=== PATIENT | male | born 1985 | race Caucasian/White ===

== ENCOUNTER 2017-09-08 22:04 | Inpatient (IN) ==
[2017-09-08 22:33] LABS: Bilirubin,Urine Small (Negative); Blood,Urine Negative (Negative); Clarity,Urine Cloudy (Clear); Color,Urine Dark Yellow (Yellow); Glucose,Urine (UA) Normal (Normal); Ketones,Urine Negative (Negative); Leukocyte Esterase,Urine Negative (Negative); Nitrite,Urine Negative (Negative); Protein,Urine 30 mg/dL (Neg-Trace); Specific Gravity,Urine 1.028 (1.010-1.025); Urobilinogen,Urine Normal (Normal)
[2017-09-08 22:36] LABS: Hyaline Casts,Urine None Seen per lpf (None-Few); Squamous Epithelial Cell,Urine Moderate per lpf (None-Few); WBC,Urine 0-3 per hpf (0-3)
[2017-09-08 22:39] LABS: Amphetamine Screen,Urine Positive ng/mL (Cutoff=1000); Barbiturate Screen,Urine Negative ng/mL (Cutoff=200); Benzodiazepines Screen,Urine Negative ng/mL (Cutoff=200); Cannabinoid Screen,Urine Negative ng/mL (Cutoff = 50); Cocaine Screen,Urine Negative ng/mL (Cutoff= 300); Opiate Screen,Urine Negative ng/mL (Cutoff=300); Phencyclidine Screen,Urine Negative ng/mL (Cutoff=25)
[2017-09-08 22:44] LABS: Bacteria,Urine Few per hpf (None-Few); RBC,Urine 0-3 per hpf (0-3)
--- NOTE | 2017-09-08 23:30 | Emergency Department Note ---
Disposition Clinical Impression: Suicidal ideation Disposition: Admitted As Inpatient Condition: Fair Time of Disposition: 01:14 Psych HPI - General Chief Complaint: ED Psychiatric Symptoms Stated Complaint: SI/HI Time Seen by Provider: 09/08/17 23:00 Source: patient Mode of arrival: ambulatory Limitations: no limitations Nursing Notes Reviewed: Yes Vital Signs Reviewed: Yes - History of Present Illness HPI Narrative: 32-year-old male history of schizophrenia noncompliant on Respinol presents with suicidal ideations. Patient denies specific plan but he has had suicidal thoughts for the last day, lately because of increased stress at home and in his life. Patient denies headache chest pain abdominal pain hematochezia melena , fever or chills. The patient states that he has no hallucinations or compulsions. Pt complaint: suicidal ideation Duration: constant History of similar episodes: Yes Improves with: none Worsens with: none Associated Psychiatric Symptoms: suicidal ideation - Related Data Previous Rx's Medication Instructions Recorded Ciprofloxacin [Cipro] 500 mg PO BID #14 tablet 02/16/16 HYDROcodone/Acet 5/325 mg [[place] 1 tab PO Q4H PRN #10 tab 02/16/16 5-325 mg] Ondansetron ODT [Zofran ODT] 4 mg SL Q4HR PRN #8 tab.rapdis 02/16/16 metroNIDAZOLE [Flagyl] 500 mg PO TID #21 tablet 02/16/16 Ibuprofen [Motrin] 600 mg PO Q8HR PRN #20 tab 07/15/17 Allergies Allergy/AdvReac Type Severity Reaction Status Date / Time No Known Allergies Allergy Verified 07/15/17 18:19 All systems ED: reviewed and negative except as stated. Review of Systems: As Per HPI Constitutional: Denies: fever Eyes: Denies: eye pain ENT ED: Denies: ear pain Cardiovascular: Denies: chest pain Respiratory: Denies: cough Gastrointestinal: Denies: abdominal pain Genitourinary: Denies: urgency Musculoskeletal: Denies: back pain Neurological: Denies: headache, weakness Psychiatric: Reports: as per HPI, depression, suicidal thoughts. Denies: anxiety, homicidal thoughts, auditory hallucinations, visual hallucinations Endocrine: Denies: fatigue Hematological/Lymphatic: Denies: easy bleeding Past Medical History - Past Medical History Attestation: Yes The following information was validated with the patient. Source: patient Medical history: Reports: no medical history Surgical history: Reports: orthopedic, other (ORIF left femur years ago) Psychiatric history: Reports: no psych history - Social History Smoking Status: Current some day smoker Smokeless Tobacco Status: Yes (occassional) Alcohol use: Reports: none Drug use: Reports: none Physical Exam Constitutional: Disheveled young male in no acute distress. Eyes: PERRLA, sclera anicteric ENT & Mouth: MMM Neck: normal inspection, neck is supple Resp: CTA bilaterally, no resp distress CV: RRR, no m/g/r dppt intact distally GI: normal inspection, soft, no guarding or rigidity Neuro: A&O3, CNII-XII grossly intact, VERDUZCO Psych: +SI Skin: on limited exam, skin intact except for callouses on feet bilaterally - General Limitations: no limitations General appearance: alert, in no apparent distress Course Course Narrative: Suicidal ideation history of schizophrenia patient will be evaluated by psychiatry after medical clearance. - Reevaluation(s) Reevaluation #1: Patient is medically cleared and admitted to the psychiatry service under the care of Dr. Thakkar after evaluation by one a nursing suicidal ideation pink slip given patient to be admitted to psychiatry in stable condition Time: 01:14 Vital Signs Temperature 97.8 F 09/08/17 22:05 Pulse Rate 95 09/08/17 22:05 Respiratory Rate 16 09/08/17 22:05 Blood Pressure 126/76 09/08/17 22:05 O2 Sat by Pulse Oximetry 98 09/08/17 22:05 Temperature 97.8 F 09/08/17 22:05 Pulse Rate 95 09/08/17 22:05 Respiratory Rate 16 09/08/17 22:05 Blood Pressure 126/76 09/08/17 22:05 O2 Sat by Pulse Oximetry 98 09/08/17 22:05 Oxygen Delivery Oxygen Delivery Room Air Psych - Lab Data Result diagrams: 09/08/17 22:39 09/08/17 22:39 Lab Results 09/08/17 09/08/17 09/08/17 Range/Units 22:10 22:10 22:39 WBC 8.6 (4.3-11.1) K/mcL RBC 4.93 (4.19-5.50) M/mcL Hgb 14.1 (12.9-16.9) g/dL Hct 43.4 (37.5-50.1) % MCV 88.0 (83.0-100.0) fL MCH 28.6 (28.0-33.3) pg MCHC 32.5 (31.6-35.5) g/dL RDW 13.7 (11.5-14.5) % Plt Count 335 (140-400) K/mcL MPV 9.3 L (9.4-12.4) fL Immature Gran % 0.2 (0-4) % Seg Neutrophils % 58.1 % Lymphocytes % 28.8 % Monocytes % 9.3 % Eosinophils % 2.9 % Basophils % 0.7 % Neutrophils # 5.0 (1.6-8.9) K/mcL Lymphocytes # 2.5 (0.6-4.6) K/mcL Monocytes # 0.8 (0.0-1.3) K/mcL Eosinophils # 0.3 (0.0-0.6) K/mcL Basophils # 0.1 (0.0-0.2) K/mcL Sodium (136-145) mEq/L Potassium (3.5-5.1) mEq/L Chloride (98-107) mEq/L Carbon Dioxide (23-29) mEq/L BUN (6-20) mg/dL Creatinine (0.70-1.30) mg/dL Est GFR ( Amer) (> 60) Est GFR (Non-Af Amer) (> 60) BUN/Creatinine Ratio (6-26) Glucose (70-105) mg/dL Calculated Osmolality (280-300) Calcium (8.6-10.3) mg/dL Ur Specimen Adequacy See below A Urine Color Dark Yellow (Yellow) Urine Clarity Cloudy A (Clear) Urine pH 7.0 (5.0-8.0) pH Units Ur Specific [place] 1.028 H (1.010-1.025) Urine Protein 30 H (Neg-Trace) mg/dL Urine Glucose (UA) Normal (Normal) mg/dL Urine Ketones Negative (Negative) mg/dL Urine Blood Negative (Negative) Urine Nitrite Negative (Negative) Urine Bilirubin Small H (Negative) Urine Urobilinogen Normal (Normal) mg/dL Ur Leukocyte Esterase Negative (Negative) Urine Microscopic RBC 0-3 (0-3) per hpf Urine Microscopic WBC 0-3 (0-3) per hpf Ur Squamous Epith Cells Moderate H (None-Few) per lpf Urine Bacteria Few (None-Few) per hpf Hyaline Casts None Seen (None-Few) per lpf Salicylates (15.0-30.0) mg/dL Urine Opiates Screen Negative (Uglcbp=727) ng/mL Acetaminophen (10-30) mcg/mL Ur Barbiturates Screen Negative (Qxoqfq=899) ng/mL Ur Phencyclidine Scrn Negative (Cutoff=25) ng/mL Ur Amphetamines Screen Positive H (Ucnbbe=2907) ng/mL U Benzodiazepines Scrn Negative (Ofhpwa=896) ng/mL Urine Cocaine Screen Negative (Cutoff= 300) ng/mL U Marijuana (THC) Screen Negative (Cutoff = 50) ng/mL Ethyl Alcohol (0-10) mg/dL 09/08/17 Range/Units 22:39 WBC (4.3-11.1) K/mcL RBC (4.19-5.50) M/mcL Hgb (12.9-16.9) g/dL Hct (37.5-50.1) % MCV (83.0-100.0) fL MCH (28.0-33.3) pg MCHC (31.6-35.5) g/dL RDW (11.5-14.5) % Plt Count (140-400) K/mcL MPV (9.4-12.4) fL Immature Gran % (0-4) % Seg Neutrophils % % Lymphocytes % % Monocytes % % Eosinophils % % Basophils % % Neutrophils # (1.6-8.9) K/mcL Lymphocytes # (0.6-4.6) K/mcL Monocytes # (0.0-1.3) K/mcL Eosinophils # (0.0-0.6) K/mcL Basophils # (0.0-0.2) K/mcL Sodium 138 (136-145) mEq/L Potassium 4.0 (3.5-5.1) mEq/L Chloride 103 (98-107) mEq/L Carbon Dioxide 28 (23-29) mEq/L BUN 13 (6-20) mg/dL Creatinine 0.75 (0.70-1.30) mg/dL Est GFR ( Amer) > 60 (> 60) Est GFR (Non-Af Amer) > 60 (> 60) BUN/Creatinine Ratio 17 (6-26) Glucose 103 (70-105) mg/dL Calculated Osmolality 286 (280-300) Calcium 9.0 (8.6-10.3) mg/dL Ur Specimen Adequacy Urine Color (Yellow) Urine Clarity (Clear) Urine pH (5.0-8.0) pH Units Ur Specific [place] (1.010-1.025) Urine Protein (Neg-Trace) mg/dL Urine Glucose (UA) (Normal) mg/dL Urine Ketones (Negative) mg/dL Urine Blood (Negative) Urine Nitrite (Negative) Urine Bilirubin (Negative) Urine Urobilinogen (Normal) mg/dL Ur Leukocyte Esterase (Negative) Urine Microscopic RBC (0-3) per hpf Urine Microscopic WBC (0-3) per hpf Ur Squamous Epith Cells (None-Few) per lpf Urine Bacteria (None-Few) per hpf Hyaline Casts (None-Few) per lpf Salicylates < 5.0 L (15.0-30.0) mg/dL Urine Opiates Screen (Wjwkrm=033) ng/mL Acetaminophen < 1.0 L (10-30) mcg/mL Ur Barbiturates Screen (Afhhik=614) ng/mL Ur Phencyclidine Scrn (Cutoff=25) ng/mL Ur Amphetamines Screen (Eeztvt=8015) ng/mL U Benzodiazepines Scrn (Jqnuzi=333) ng/mL Urine Cocaine Screen (Cutoff= 300) ng/mL U Marijuana (THC) Screen (Cutoff = 50) ng/mL Ethyl Alcohol < 10 (0-10) mg/dL Psychiatric Medical Clearance - Medical Clearance Checklist Does the patient have a NEW psychiatric condition?: Yes Any abnormalities indicating possible medical illness?: No Any history of medical issues?: No Medical History: Suicidal ideation (Acute) Colitis (Inactive) Contusion of left hip (Inactive) Femoral shaft fracture (Inactive) Left leg pain (Inactive) No Social History Section defined Any abnormal vital signs prior to transfer?: No Current Vitals: Last Vital Signs Temp 97.8 F 09/08/17 22:05 Pulse 95 09/08/17 22:05 Resp 16 09/08/17 22:05 BP 126/76 09/08/17 22:05 Pulse Ox 98 09/08/17 22:05 Is the patient intoxicated or cognitively impaired?: No Psychiatric Lab Panel: Drug Levels and Toxicity 09/08/17 09/08/17 22:10 22:39 Urine Opiates Screen Negative Acetaminophen < 1.0 L Ur Barbiturates Screen Negative Ur Phencyclidine Scrn Negative Ur Amphetamines Screen Positive H U Benzodiazepines Scrn Negative Urine Cocaine Screen Negative U Marijuana (THC) Screen Negative Ethyl Alcohol < 10 Any abnormalities on the physical exam?: No Any abnormal labs?: No Abnormal Labs: Abnormal lab results MPV 9.3 fL (9.4-12.4) L 09/08/17 22:39 Ur Specimen Adequacy See below A 09/08/17 22:10 Urine Clarity Cloudy (Clear) A 09/08/17 22:10 Ur Specific [place] 1.028 (1.010-1.025) H 09/08/17 22:10 Urine Protein 30 mg/dL (Neg-Trace) H 09/08/17 22:10 Urine Bilirubin Small (Negative) H 09/08/17 22:10 Ur Squamous Epith Cells Moderate per lpf (None-Few) H 09/08/17 22:10 Salicylates < 5.0 mg/dL (15.0-30.0) L 09/08/17 22:39 Acetaminophen < 1.0 mcg/mL (10-30) L 09/08/17 22:39 Ur Amphetamines Screen Positive ng/mL (Wvjqno=6943) H 09/08/17 22:10 Does the patient require durable medical equiptment?: No Is the patient ambulatory?: Yes Is the patient a fall risk?: No Has the patient been medically cleared?: Yes Any acute medical condition require Tx prior to transfer?: No Statement of Medical Clearance: I have evaluated the patient, reviewed diagnostic information, and certify that the patient's medical condition is sufficiently stable that transfer to the psychiatric unit does not pose a significant risk of deterioration. Attestation Statement - Attestation Attestation: I, Preston Castaneda MD, personally evaluated this patient and discussed their management with the resident physician. I reviewed the resident's note and agree with the documented findings, medical decision making, and plan of care. 32-year-old male who is homeless and presents to the emergency department complaining of suicidal ideation. He states he has been having suicidal thoughts for the past few weeks. He does not have a specific plan. He has a history of some suicidal thoughts in the past but has never attempted to harm himself. He denies homicidal ideation. He complains of pain in his feet from wearing wet shoes and walking a lot. On examination patient is a well-developed well-nourished male in no acute distress. He is alert and oriented 3. There is no cyanosis or diaphoresis. Breath sounds are clear and equal bilaterally. Heart regular rate and rhythm. Abdomen soft and nontender with normal bowel sounds. No gross focal neurological deficits. Patient has multiple calluses on his feet bilaterally with some erythema. No open wounds or blisters. No evidence of frostbite. Labs reviewed. Patient medically cleared for psychiatric evaluation. He was seen and evaluated in the emergency department by the [address] psychiatry service and is being admitted to the 1A psychiatric unit.
[2017-09-08 23:38] LABS: Basophils # 0.1 K/mcL (0.0-0.2); Basophils % 0.7 %; Eosinophils # 0.3 K/mcL (0.0-0.6); Eosinophils % 2.9 %; Hematocrit 43.4 % (37.5-50.1); Hemoglobin 14.1 g/dL (12.9-16.9); Immature Granulocytes % 0.2 % (0-4); Lymphocytes # 2.5 K/mcL (0.6-4.6); Lymphocytes % 28.8 %; Mean Corpuscular HGB Conc 32.5 g/dL (31.6-35.5); Mean Corpuscular Hemoglobin 28.6 pg (28.0-33.3); Mean Platelet Volume 9.3 fL (9.4-12.4); Monocytes # 0.8 K/mcL (0.0-1.3); Monocytes % 9.3 %; Platelet Count 335 K/mcL (140-400); Red Blood Count 4.93 M/mcL (4.19-5.50); Red Cell Distribution Width 13.7 % (11.5-14.5); Segmented Neutrophils % 58.1 %
[2017-09-09 00:01] LABS: BUN/Creatinine Ratio 17 (6-26); Blood Urea Nitrogen 13 mg/dL (6-20); Carbon Dioxide 28 mEq/L (23-29); Chloride 103 mEq/L (98-107); Glucose 103 mg/dL (70-105); Osmolality,Calculated 286 (280-300); Sodium 138 mEq/L (136-145); eGFR For African Americans > 60 (> 60); eGFR For Non-African Americans > 60 (> 60)
[2017-09-09 00:08] LABS: Acetaminophen < 1.0 mcg/mL (10-30); Ethanol < 10 mg/dL (0-10); Salicylate < 5.0 mg/dL (15.0-30.0)
[2017-09-09] MEDS ORDERED: MOM Conc 10 ML UD.LIQ PO PRN (01:07)
[2017-09-09] MEDS ORDERED: Haloperidol Lactate 5 MG/ML VIAL IM PRN (01:07)
[2017-09-09] MEDS ORDERED: *HR* LORazepam 1 MG TABLET PO PRN (01:07)
[2017-09-09] MEDS ORDERED: *HR* LORazepam 2 MG/ML VIAL IM PRN (01:07)
[2017-09-09] MEDS ORDERED: Mag Hydrox/Al Hydrox/Simeth 30 ML UDC PO PRN (01:07)
[2017-09-09] MEDS: traZODone 50 MG TABLET PO PRN (01:56)
[2017-09-09] MEDS: Acetaminophen 325 MG TABLET PO PRN (01:56)
--- NOTE | 2017-09-09 10:38 | Psychiatry History & Physical ---
Date of Encounter: 09/09/17 Time of Encounter: 10:10 History of Present Illness Patient Stated Chief Complaint: i am having suicide thoughts. Medicare Admission Attestation: For traditional Medicare patients the provided hospital inpatient services are reasonable and necessary and in the case of services not specified as inpatient -only under 42 CFR 419.22 (n), that they are appropriately provided as inpatient services in accordance 42 CFR 412.3. For Critical Access Hospital the patient may reasonably be expected to be discharged or transferred to a hospital within 96 hours after admission to the Critical Access Hospital. Admitted From: Emergency Dept Plans for Post Hospital Care: Transfer Other History of Present Illness: Mr. Wright is a 32 year old male evaluated today , he has h/o Schizophrenia and off medicine risperdal for few years. 32-year-old male who is homeless and presents to the emergency department complaining of suicidal ideation. He states he has been having suicidal thoughts for the past few weeks. He does not have a specific plan. He has a history of some suicidal thoughts in the past but has never attempted to harm himself. At present is depress and feels fatigued and tired and lack of motivation , denies any plan to hurt self, he is having auditory hallucinations here and there, not commanding, admits to paranoia , denies any homicidal ideation. His tox screen positive for methamphetamine , sammy other drugs, he states uses occasionally. medically he is stable . at present depress, having suicidal ideation and psychosis. Past Med Surg Social Fam HX - Past Medical History Medical history: no medical history - Past Psychiatric History Psychiatric history: Reports: depression, schizophrenia, previous psychiatric hospitalization Family psychiatric history: Yes Family History of Suicide: Unknown - Past Surgical History Surgical History: orthopedic, other (ORIF left femur years ago) - Social History Smoking Status: Current some day smoker Smokeless Tobacco Status: Yes (occassional) Alcohol use: none Drug use: none - Family History Mother History Unknown: Yes Adopted: No Hx Family Cancer: Yes (lung) Medications & Allergies 3 Allergy/AdvReac Type Severity Reaction Status Date / Time No Known Allergies Allergy Verified 07/15/17 18:19 Review of Systems Psychiatric: Reports: depression, anxiety, change in appetite, auditory hallucinations, hopelessness Mental Status Exam Patient orientation: Yes Person, Yes Time, Yes Place Level of alertness: Alert Patient appearance: Disheveled Behavior: cooperative, anxious Psychomotor activity: Normal Eye contact: Minimal Contact Mood description: Depressed, Anxious Affect description: congruent with mood Speech pattern: Slowed Speech volume: Soft/Quiet Thought content: Yes Suicidal ideation, Yes Paranoid delusion, Yes Guilt Perceptual disturbances: Yes Auditory hallucinations Attention span: Unable to Sustain Attention Memory description: Grossly Intact Patient reliability: Questionable Historian Judgment: Poor Insight: Minimal Exam - HEENT Head exam IM: Present: atraumatic, normal inspection, normocephalic Eye exam IM: Present: normal appearance ENT exam IM: Present: normal exam - Neurological Neurological exam IM: Present: alert, CN II-XII intact, normal gait, oriented X3 - Skin Skin exam IM: Present: abrasion (from bushes) Results - Vital Signs Vital signs: Temp Pulse Resp BP Pulse Ox 98.6 F 90 18 116/78 98 09/09/17 01:26 09/09/17 01:26 09/09/17 01:26 09/09/17 01:26 09/08/17 22:05 - Labs Labs: Laboratory Last Values WBC 8.6 K/mcL (4.3-11.1) 09/08/17 22:39 RBC 4.93 M/mcL (4.19-5.50) 09/08/17 22:39 Hgb 14.1 g/dL (12.9-16.9) 09/08/17 22:39 Hct 43.4 % (37.5-50.1) 09/08/17 22:39 MCV 88.0 fL (83.0-100.0) 09/08/17 22:39 MCH 28.6 pg (28.0-33.3) 09/08/17 22:39 MCHC 32.5 g/dL (31.6-35.5) 09/08/17 22:39 RDW 13.7 % (11.5-14.5) 09/08/17 22:39 Plt Count 335 K/mcL (140-400) 09/08/17 22:39 MPV 9.3 fL (9.4-12.4) L 09/08/17 22:39 Immature Gran % 0.2 % (0-4) 09/08/17 22:39 Seg Neutrophils % 58.1 % 09/08/17 22:39 Lymphocytes % 28.8 % 09/08/17 22:39 Monocytes % 9.3 % 09/08/17 22:39 Eosinophils % 2.9 % 09/08/17 22:39 Basophils % 0.7 % 09/08/17 22:39 Neutrophils # 5.0 K/mcL (1.6-8.9) 09/08/17 22:39 Lymphocytes # 2.5 K/mcL (0.6-4.6) 09/08/17 22:39 Monocytes # 0.8 K/mcL (0.0-1.3) 09/08/17 22:39 Eosinophils # 0.3 K/mcL (0.0-0.6) 09/08/17 22:39 Basophils # 0.1 K/mcL (0.0-0.2) 09/08/17 22:39 Sodium 138 mEq/L (136-145) 09/08/17 22:39 Potassium 4.0 mEq/L (3.5-5.1) 09/08/17 22:39 Chloride 103 mEq/L (98-107) 09/08/17 22:39 Carbon Dioxide 28 mEq/L (23-29) 09/08/17 22:39 BUN 13 mg/dL (6-20) 09/08/17 22:39 Creatinine 0.75 mg/dL (0.70-1.30) 09/08/17 22:39 Est GFR ( Amer) > 60 (> 60) 09/08/17 22:39 Est GFR (Non-Af Amer) > 60 (> 60) 09/08/17 22:39 BUN/Creatinine Ratio 17 (6-26) 09/08/17 22:39 Glucose 103 mg/dL (70-105) 09/08/17 22:39 Calculated Osmolality 286 (280-300) 09/08/17 22:39 Calcium 9.0 mg/dL (8.6-10.3) 09/08/17 22:39 Ur Specimen Adequacy See below A 09/08/17 22:10 Urine Color Dark Yellow (Yellow) 09/08/17 22:10 Urine Clarity Cloudy (Clear) A 09/08/17 22:10 Urine pH 7.0 pH Units (5.0-8.0) 09/08/17 22:10 Ur Specific [place] 1.028 (1.010-1.025) H 09/08/17 22:10 Urine Protein 30 mg/dL (Neg-Trace) H 09/08/17 22:10 Urine Glucose (UA) Normal mg/dL (Normal) 09/08/17 22:10 Urine Ketones Negative mg/dL (Negative) 09/08/17 22:10 Urine Blood Negative (Negative) 09/08/17 22:10 Urine Nitrite Negative (Negative) 09/08/17 22:10 Urine Bilirubin Small (Negative) H 09/08/17 22:10 Urine Urobilinogen Normal mg/dL (Normal) 09/08/17 22:10 Ur Leukocyte Esterase Negative (Negative) 09/08/17 22:10 Urine Microscopic RBC 0-3 per hpf (0-3) 09/08/17 22:10 Urine Microscopic WBC 0-3 per hpf (0-3) 09/08/17 22:10 Ur Squamous Epith Cells Moderate per lpf (None-Few) H 09/08/17 22:10 Urine Bacteria Few per hpf (None-Few) 09/08/17 22:10 Hyaline Casts None Seen per lpf (None-Few) 09/08/17 22:10 Salicylates < 5.0 mg/dL (15.0-30.0) L 09/08/17 22:39 Urine Opiates Screen Negative ng/mL (Jevnyf=036) 09/08/17 22:10 Acetaminophen < 1.0 mcg/mL (10-30) L 09/08/17 22:39 Ur Barbiturates Screen Negative ng/mL (Xznkxt=654) 09/08/17 22:10 Ur Phencyclidine Scrn Negative ng/mL (Cutoff=25) 09/08/17 22:10 Ur Amphetamines Screen Positive ng/mL (Eicgtp=1436) H 09/08/17 22:10 U Benzodiazepines Scrn Negative ng/mL (Rvizid=140) 09/08/17 22:10 Urine Cocaine Screen Negative ng/mL (Cutoff= 300) 09/08/17 22:10 U Marijuana (THC) Screen Negative ng/mL (Cutoff = 50) 09/08/17 22:10 Ethyl Alcohol < 10 mg/dL (0-10) 09/08/17 22:39 Assessment and Plan (1) Suicidal ideation Current visit: Yes Status: Acute Plan: Admit inpatient for safety and stabilization, Close observation, Suicide Precautions per unit protocol, Encourage participation in unit milieu, Group Therapy, Monitor sleep, Monitor appetite, Family/Supportive other meeting Risks, benefits, side effects, alternatives discussed w/pt: Yes Patient agreeable to treatment: Yes Plans for Post Hospital Care: Transfer Other (2) Schizophrenia Current visit: Yes Status: Acute Plan: Admit inpatient for safety and stabilization, Close observation, Suicide Precautions per unit protocol, Encourage participation in unit milieu, Group Therapy, Monitor sleep, Monitor appetite, Secure weapons, Family/Supportive other meeting Risks, benefits, side effects, alternatives discussed w/pt: Yes Patient agreeable to treatment: Yes Plans for Post Hospital Care: Transfer Other Estimated Length of Stay (Days): 6 Qualifiers: Schizophrenia type: paranoid schizophrenia Qualified Code(s): F20.0 - Paranoid schizophrenia
[2017-09-10] MEDS: risperiDONE 1 MG TABLET PO SCH (09:18)
--- NOTE | 2017-09-10 13:26 | Psychiatry Progress Note ---
Date of Encounter: 09/10/17 Time of Encounter: 13:10 Subjective Interval history: Patient seen today , case d/w treatment team . states doig same , sleep was better, tired , lack of motivation , depress and suicidal thoughts none today but hopeless and worthless hallucinations present and patient still isolative and less interaction. denies side effects. Review of Systems Psychiatric: Reports: depression, anxiety, change in appetite, auditory hallucinations, anhedonia, difficulty concentrating, hopelessness Objective: Exam Patient orientation: Yes Person, Yes Time, Yes Place Level of alertness: Alert Patient appearance: Appropriate Behavior: cooperative, withdrawn Psychomotor activity: Slowed Eye contact: Minimal Contact Mood description: Depressed, Anxious Affect description: dysphoric Speech pattern: Slowed Speech volume: Soft/Quiet Thought process: Logical Thought content: Yes Preoccupation, Yes Guilt Perceptual disturbances: Yes Auditory hallucinations Judgment: Poor Insight: Partial Results - Vital Signs Vital Signs: Temp Pulse Resp BP Pulse Ox 97.4 F L 76 14 123/77 98 09/10/17 09:00 09/10/17 09:00 09/10/17 09:00 09/10/17 09:00 09/08/17 22:05 Assessment and Plan (1) Suicidal ideation Current visit: Yes Status: Acute Risks, benefits, side effects, alternatives discussed w/pt: Yes Patient agreeable to treatment: Yes (2) Schizophrenia Current visit: Yes Status: Acute Risks, benefits, side effects, alternatives discussed w/pt: Yes Patient agreeable to treatment: Yes Qualifiers: Schizophrenia type: paranoid schizophrenia Qualified Code(s): F20.0 - Paranoid schizophrenia (3) Amphetamine abuse, episodic Current visit: Yes Status: Acute Plan: Continue hospitalization, Close observation, Suicide Precautions per unit protocol, Encourage participation in unit milieu, Group Therapy, Monitor sleep, Monitor appetite, Family/Supportive other meeting Risks, benefits, side effects, alternatives discussed w/pt: Yes Patient agreeable to treatment: Yes Consult Discharge Plan - Plan Referrals: NONE,PCP [Primary Care Provider] -
[2017-09-10] MEDS: traZODone 50 MG TABLET PO PRN (20:58)
[2017-09-11] MEDS: risperiDONE 1 MG TABLET PO SCH (08:49)
--- NOTE | 2017-09-11 13:40 | Psychiatry Progress Note ---
Date of Encounter: 09/11/17 Time of Encounter: 13:20 Subjective Interval history: Patient seen today , case d/w staff and treatment team , he has declined groups , is isolative and mostly in his room , when asked today why he is not attending groups , said he is very tired , he is homeless and was abusing methamphetamine , states he is still down , tired , sad, denies suicidal thoughts , it comes and goes , is hopeless, paranoia and psychosis is little better. states when depression is bad i relapse , he has h/o opiate abuse , he still takes once a month and has been using for 10 yrs now. he has no support system , no family or friends , he is on disability most of it goes to street drugs . patient agreed to go to inpatient rehab and once stable will dc him to rehab. Review of Systems Psychiatric: Reports: depression, anxiety, change in appetite, auditory hallucinations, anhedonia, difficulty concentrating, hopelessness Objective: Exam Patient orientation: Yes Person, Yes Time, Yes Place Level of alertness: Alert Patient appearance: Appropriate Behavior: cooperative, anxious Psychomotor activity: Slowed Eye contact: Maintains Eye Contact Mood description: Depressed, Anxious Affect description: congruent with mood Speech pattern: Slowed Speech volume: Normal Thought process: Intact Thought content: Yes Paranoid delusion Perceptual disturbances: Yes Auditory hallucinations Judgment: Limited Insight: Minimal Results - Vital Signs Vital Signs: Temp Pulse Resp BP Pulse Ox 98 F 73 16 115/74 98 09/11/17 08:59 09/11/17 08:59 09/11/17 08:59 09/11/17 08:59 09/08/17 22:05 Assessment and Plan (1) Suicidal ideation Current visit: Yes Status: Acute Risks, benefits, side effects, alternatives discussed w/pt: Yes Patient agreeable to treatment: Yes (2) Schizophrenia Current visit: Yes Status: Acute Risks, benefits, side effects, alternatives discussed w/pt: Yes Patient agreeable to treatment: Yes Qualifiers: Schizophrenia type: paranoid schizophrenia Qualified Code(s): F20.0 - Paranoid schizophrenia (3) Amphetamine abuse, episodic Current visit: Yes Status: Acute Risks, benefits, side effects, alternatives discussed w/pt: Yes Patient agreeable to treatment: Yes (4) Cocaine abuse Current visit: Yes Status: Chronic Plan: Continue hospitalization, Suicide Precautions per unit protocol, Group Therapy, Monitor sleep Risks, benefits, side effects, alternatives discussed w /pt: Yes Patient agreeable to treatment: Yes Consult Discharge Plan - Plan Referrals: NONE,PCP [Primary Care Provider] -
[2017-09-11] MEDS: Nicotine 2 MG GUM BC PRN (13:45)
[2017-09-11] MEDS: traZODone 50 MG TABLET PO PRN (21:27)
[2017-09-12] MEDS: risperiDONE 1 MG TABLET PO SCH (08:33)
--- NOTE | 2017-09-12 11:02 | Psychiatry Progress Note ---
Date of Encounter: 09/12/17 Time of Encounter: 10:40 Subjective Interval history: Patient seen today , case d/w treatment team , he has not been participating in groups , mostly in bed , will come out to eat and shower , states i do not know why i am not participating. he is c/o being tired and lethargic , had been using methamphetamines. voices are there as per him not as intense but still there, negative things about him, depression is still there , lack of motivation and denies suicidal thoughts. he wants to go to rehab and try to be sober. states has called few places and they have waiting list . denies side effects. Review of Systems Psychiatric: Reports: depression, anxiety, change in appetite, auditory hallucinations, anhedonia, difficulty concentrating, hopelessness Objective: Exam Patient orientation: Yes Person, Yes Time, Yes Place Level of alertness: Alert Patient appearance: Appropriate Behavior: cooperative, anxious Psychomotor activity: Normal Eye contact: Maintains Eye Contact Mood description: Depressed, Anxious Affect description: congruent with mood Speech pattern: Coherent Speech volume: Normal Thought process: Intact Thought content: Yes Preoccupation, Yes Paranoid delusion Perceptual disturbances: Yes Auditory hallucinations Judgment: Limited Insight: Partial Results - Vital Signs Vital Signs: Temp Pulse Resp BP Pulse Ox 98.0 F 71 16 122/74 98 09/12/17 09:00 09/12/17 09:00 09/12/17 09:00 09/12/17 09:00 09/08/17 22:05 Assessment and Plan (1) Suicidal ideation Current visit: Yes Status: Acute Risks, benefits, side effects, alternatives discussed w/pt: Yes Patient agreeable to treatment: Yes (2) Schizophrenia Current visit: Yes Status: Acute Risks, benefits, side effects, alternatives discussed w/pt: Yes Patient agreeable to treatment: Yes Qualifiers: Schizophrenia type: paranoid schizophrenia Qualified Code(s): F20.0 - Paranoid schizophrenia (3) Amphetamine abuse, episodic Current visit: Yes Status: Acute Risks, benefits, side effects, alternatives discussed w/pt: Yes Patient agreeable to treatment: Yes (4) Cocaine abuse Current visit: Yes Status: Chronic Risks, benefits, side effects, alternatives discussed w/pt: Yes Patient agreeable to treatment: Yes Consult Discharge Plan - Plan Referrals: NONE,PCP [Primary Care Provider] -
[2017-09-12] MEDS: Nicotine 2 MG GUM BC PRN (14:21)
[2017-09-12] MEDS: traZODone 50 MG TABLET PO PRN (22:07)
[2017-09-12] MEDS: hydrOXYzine pamoate 25 MG CAPSULE PO PRN (22:11)
[2017-09-12] MEDS: Acetaminophen 325 MG TABLET PO PRN (22:11)
[2017-09-13] MEDS: risperiDONE 1 MG TABLET PO SCH (08:47)
--- NOTE | 2017-09-13 11:08 | Psychiatry Progress Note ---
Date of Encounter: 09/13/17 Time of Encounter: 10:45 Subjective Interval history: Patient seen today , case d/w team , patient still mostly in his room and not attending groups but compliant with medications. he states still feels depress , tired and lack of motivation , having with drawl from meth. at present denies suicidal ideation , but has low grade paranoia and auditory hallucination. continue monitoring and stabilization , plan to discharge to inpatient rehab. Review of Systems Psychiatric: Reports: depression, anxiety, change in appetite, auditory hallucinations, anhedonia, difficulty concentrating, hopelessness Objective: Exam Patient orientation: Yes Person, Yes Time, Yes Place Level of alertness: Alert Patient appearance: Appropriate Behavior: cooperative, withdrawn Psychomotor activity: Slowed Eye contact: Maintains Eye Contact Mood description: Depressed Affect description: dysphoric Speech pattern: Coherent Speech volume: Soft/Quiet Thought process: Logical Thought content: Yes Preoccupation, Yes Paranoid delusion Perceptual disturbances: Yes Auditory hallucinations Judgment: Limited Insight: Minimal Results - Vital Signs Vital Signs: Temp Pulse Resp BP Pulse Ox 98.3 F 73 16 114/74 98 09/13/17 09:00 09/13/17 09:00 09/13/17 09:00 09/13/17 09:00 09/08/17 22:05 Assessment and Plan (1) Suicidal ideation Current visit: Yes Status: Acute Risks, benefits, side effects, alternatives discussed w/pt: Yes Patient agreeable to treatment: Yes (2) Schizophrenia Current visit: Yes Status: Acute Risks, benefits, side effects, alternatives discussed w/pt: Yes Patient agreeable to treatment: Yes Qualifiers: Schizophrenia type: paranoid schizophrenia Qualified Code(s): F20.0 - Paranoid schizophrenia (3) Amphetamine abuse, episodic Current visit: Yes Status: Acute Risks, benefits, side effects, alternatives discussed w/pt: Yes Patient agreeable to treatment: Yes (4) Cocaine abuse Current visit: Yes Status: Chronic Risks, benefits, side effects, alternatives discussed w/pt: Yes Patient agreeable to treatment: Yes Consult Discharge Plan - Plan Referrals: [facility] [Outside] (You are going into residential substance abuse treatment at [facility] on discharge from the hospital. While there, clinic staff will open a case for you to become a client, and you will be seen daily by the clinic counselors and pillowcase sewer, both individually and in group. Your mental health treatment needs will be addressed concurrently. You will also be scheduled to see the psychiatric provider for outpatient psychiatric assessment, evaluation of need for medication assisted treatment, and medication management. )
[2017-09-13 11:18] LABS: Hemoglobin A1C 5.6 %
[2017-09-13] MEDS: Acetaminophen 325 MG TABLET PO PRN (21:19)
[2017-09-13] MEDS: traZODone 50 MG TABLET PO PRN (21:20)
[2017-09-13] MEDS: hydrOXYzine pamoate 25 MG CAPSULE PO PRN (21:20)
[2017-09-14] MEDS: risperiDONE 1 MG TABLET PO SCH (08:55)
--- NOTE | 2017-09-14 12:42 | Psychiatry Progress Note ---
Date of Encounter: 09/14/17 Time of Encounter: 12:30 Subjective Interval history: patient seen today , case d/w staff, he is coming out more and not in bed al the time. Patient states still feels tired and depress but no suicidal ideation , he has been having cravings and is trying to cope. he denies side effects. at times feels dizzy , after he wakes up. educated to sit on bed for while before getting up. Review of Systems Psychiatric: Reports: depression, anxiety, change in appetite, auditory hallucinations, anhedonia, difficulty concentrating, hopelessness Results - Vital Signs Vital Signs: Temp Pulse Resp BP Pulse Ox 98.4 F 63 16 112/72 98 09/14/17 09:00 09/14/17 09:00 09/14/17 09:00 09/14/17 09:00 09/08/17 22:05 Assessment and Plan (1) Suicidal ideation Current visit: Yes Status: Acute Risks, benefits, side effects, alternatives discussed w/pt: Yes Patient agreeable to treatment: Yes (2) Schizophrenia Current visit: Yes Status: Acute Risks, benefits, side effects, alternatives discussed w/pt: Yes Patient agreeable to treatment: Yes Qualifiers: Schizophrenia type: paranoid schizophrenia Qualified Code(s): F20.0 - Paranoid schizophrenia (3) Amphetamine abuse, episodic Current visit: Yes Status: Acute Risks, benefits, side effects, alternatives discussed w/pt: Yes Patient agreeable to treatment: Yes (4) Cocaine abuse Current visit: Yes Status: Chronic Risks, benefits, side effects, alternatives discussed w/pt: Yes Patient agreeable to treatment: Yes Consult Discharge Plan - Plan Referrals: [facility] [Outside] (You are going into residential substance abuse treatment at [facility] on discharge from the hospital. While there, clinic staff will open a case for you to become a client, and you will be seen daily by the clinic counselors and case management social worker, both individually and in group. Your mental health treatment needs will be addressed concurrently. You will also be scheduled to see the psychiatric provider for outpatient psychiatric assessment, evaluation of need for medication assisted treatment, and medication management. ) Psychiatry Exam - Constitutional Vitals: Temp Pulse Resp BP Pulse Ox 98.4 F 63 16 112/72 98 09/14/17 09:00 09/14/17 09:00 09/14/17 09:00 09/14/17 09:00 09/08/17 22:05 General appearance: age & developmentally appropriate - Musculoskeletal Gait: normal Station: other Strength & Tone: normal for patient - Psychiatric Patient Orientation: Yes Person, Yes Time, Yes Place Level of alertness: Alert Behavior: cooperative, anxious Psychomotor activity: Normal Eye Contact: Maintains Eye Contact Mood Description: Depressed, Anxious Affect description: congruent with mood Speech Volume: Normal Speech pattern: appropriate, coherent Language & Vocabulary: consistent with education Thought Process: Logical Thought Content: Yes Paranoid delusion, Yes Guilt Attention Span Ability: Unable to Sustain Attention Memory Description: Grossly Intact Patient Reliability: Reliable Historian Intelligence Estimate: Average Judgment: Limited Insight: Partial
[2017-09-14] MEDS: Nicotine 2 MG GUM BC PRN (14:02)
[2017-09-14] MEDS: hydrOXYzine pamoate 25 MG CAPSULE PO PRN (21:31)
[2017-09-14] MEDS: traZODone 50 MG TABLET PO PRN (21:31)
[2017-09-15] MEDS: risperiDONE 1 MG TABLET PO SCH (09:36)
--- NOTE | 2017-09-15 12:16 | Psychiatry Progress Note ---
Date of Encounter: 09/15/17 Time of Encounter: 12:00 Subjective Interval history: Patient seen today , case d/w staff and chart reviewed. Patient is showing improvement , he is not suicidal , depression getting better , denies psychosis. he is c/o withdrawing from drugs and feeling tired and fatigue, education given about with drawl and he acknowledged , he is willing to go to inpatient rehab and aware needs to maintain his soberity. at present compliant with medications and no side effects. Review of Systems Psychiatric: Reports: depression, anxiety, change in appetite, auditory hallucinations, anhedonia, difficulty concentrating, hopelessness Results - Vital Signs Vital Signs: Temp Pulse Resp BP Pulse Ox 97.4 F L 80 16 117/64 98 09/15/17 09:00 09/15/17 09:00 09/15/17 09:00 09/15/17 09:00 09/08/17 22:05 Assessment and Plan (1) Suicidal ideation Current visit: Yes Status: Acute Risks, benefits, side effects, alternatives discussed w/pt: Yes Patient agreeable to treatment: Yes (2) Schizophrenia Current visit: Yes Status: Acute Risks, benefits, side effects, alternatives discussed w/pt: Yes Patient agreeable to treatment: Yes Qualifiers: Schizophrenia type: paranoid schizophrenia Qualified Code(s): F20.0 - Paranoid schizophrenia (3) Amphetamine abuse, episodic Current visit: Yes Status: Acute Risks, benefits, side effects, alternatives discussed w/pt: Yes Patient agreeable to treatment: Yes (4) Cocaine abuse Current visit: Yes Status: Chronic Risks, benefits, side effects, alternatives discussed w/pt: Yes Patient agreeable to treatment: Yes Consult Discharge Plan - Plan Referrals: [facility] [Outside] (You are going into residential substance abuse treatment at [facility] on discharge from the hospital. While there, clinic staff will open a case for you to become a client, and you will be seen daily by the clinic counselors and casework specialist, both individually and in group. Your mental health treatment needs will be addressed concurrently. You will also be scheduled to see the psychiatric provider for outpatient psychiatric assessment, evaluation of need for medication assisted treatment, and medication management. ) Psychiatry Exam - Constitutional Vitals: Temp Pulse Resp BP Pulse Ox 97.4 F L 80 16 117/64 98 09/15/17 09:00 09/15/17 09:00 09/15/17 09:00 09/15/17 09:00 09/08/17 22:05 General appearance: age & developmentally appropriate - Musculoskeletal Gait: normal Station: relaxed Strength & Tone: normal for patient - Psychiatric Patient Orientation: Yes Person, Yes Time, Yes Place Level of alertness: Alert Behavior: cooperative Psychomotor activity: Normal Eye Contact: Maintains Eye Contact Mood Description: Depressed, Anxious Affect description: congruent with mood Speech Volume: Normal Speech pattern: clear, coherent Language & Vocabulary: consistent with education Thought Process: Intact Thought Content: Yes Guilt Attention Span Ability: Capable of Sustained Attention Memory Description: Grossly Intact Patient Reliability: Reliable Historian Fund of knowledge: Yes average Intelligence Estimate: Average Judgment: Limited Insight: Minimal
[2017-09-15] MEDS: traZODone 50 MG TABLET PO PRN (21:27)
[2017-09-15] MEDS: Acetaminophen 325 MG TABLET PO PRN (21:27)
[2017-09-15] MEDS: hydrOXYzine pamoate 25 MG CAPSULE PO PRN (21:27)
[2017-09-16] MEDS: risperiDONE 1 MG TABLET PO SCH (09:29)
[2017-09-16] MEDS: Nicotine 2 MG GUM BC PRN ×2 (14:20→21:22)
--- NOTE | 2017-09-16 17:28 | Psychiatry Progress Note ---
Date of Encounter: 09/16/17 Time of Encounter: 17:18 Review of Systems Psychiatric: Reports: depression, anxiety, change in appetite, auditory hallucinations, anhedonia, difficulty concentrating, hopelessness Results - Vital Signs Vital Signs: Temp Pulse Resp BP Pulse Ox 97.6 F 83 18 105/72 98 09/16/17 09:00 09/16/17 09:00 09/16/17 09:00 09/16/17 09:00 09/08/17 22:05 Consult Discharge Plan - Plan Referrals: [facility] [Outside] (You are going into residential substance abuse treatment at [facility] on discharge from the hospital. While there, clinic staff will open a case for you to become a client, and you will be seen daily by the clinic counselors and oil field caser, both individually and in group. Your mental health treatment needs will be addressed concurrently. You will also be scheduled to see the psychiatric provider for outpatient psychiatric assessment, evaluation of need for medication assisted treatment, and medication management. ) Psychiatry Exam - Constitutional Vitals: Temp Pulse Resp BP Pulse Ox 97.6 F 83 18 105/72 98 09/16/17 09:00 09/16/17 09:00 09/16/17 09:00 09/16/17 09:00 09/08/17 22:05 General appearance: age & developmentally appropriate, well-groomed, well- nourished - Musculoskeletal Gait: normal Station: relaxed Strength & Tone: normal for patient - Psychiatric Patient Orientation: Yes Person, Yes Time, Yes Place Level of alertness: Alert Behavior: calm, cooperative Psychomotor activity: Normal Eye Contact: Maintains Eye Contact Mood Description: Euthymic/stable Affect description: congruent with mood, full range Speech Volume: Normal Speech pattern: normal rate, normal rhythm, normal tone, fluent, spontaneous Language & Vocabulary: consistent with education Thought Process: Linear, Goal Oriented Thought Content: No Suicidal ideation, No Homicidal ideation, No Overt delusions Perceptual Disturbances: No Auditory hallucinations, No Visual hallucinations Attention Span Ability: Capable of Focused Attention Memory Description: Grossly Intact Patient Reliability: Reliable Historian Fund of knowledge: Yes abstraction ability, Yes aware of current events Intelligence Estimate: Average Judgment: Limited Insight: Partial
--- NOTE | 2017-09-16 17:38 | Psychiatry Progress Note ---
Date of Encounter: 09/16/17 Time of Encounter: 17:15 Subjective Interval history: Patient seen for follow-up. Case discussed with the treatment team. He is responding to medication and denies side effects. He denies suicidal ideation. He is interested and rehabilitation treatment for drugs. Review of Systems Psychiatric: Reports: depression, anxiety, change in appetite, auditory hallucinations, anhedonia, difficulty concentrating, hopelessness Results - Vital Signs Vital Signs: Temp Pulse Resp BP Pulse Ox 97.6 F 83 18 105/72 98 09/16/17 09:00 09/16/17 09:00 09/16/17 09:00 09/16/17 09:00 09/08/17 22:05 Assessment and Plan (1) Schizophrenia Current visit: Yes Status: Acute Plan: Continue hospitalization, Close observation, Suicide Precautions per unit protocol, Encourage participation in unit milieu, Group Therapy, Monitor sleep, Monitor appetite Risks, benefits, side effects, alternatives discussed w/pt: Yes Patient agreeable to treatment: Yes Qualifiers: Schizophrenia type: paranoid schizophrenia Qualified Code(s): F20.0 - Paranoid schizophrenia Consult Discharge Plan - Plan Referrals: [facility] [Outside] (You are going into residential substance abuse treatment at [facility] on discharge from the hospital. While there, clinic staff will open a case for you to become a client, and you will be seen daily by the clinic counselors and piano case maker, both individually and in group. Your mental health treatment needs will be addressed concurrently. You will also be scheduled to see the psychiatric provider for outpatient psychiatric assessment, evaluation of need for medication assisted treatment, and medication management. ) Psychiatry Exam - Constitutional Vitals: Temp Pulse Resp BP Pulse Ox 97.6 F 83 18 105/72 98 09/16/17 09:00 09/16/17 09:00 09/16/17 09:00 09/16/17 09:00 09/08/17 22:05 General appearance: age & developmentally appropriate, well-nourished, unkempt - Musculoskeletal Gait: normal Station: relaxed Strength & Tone: normal for patient - Psychiatric Patient Orientation: Yes Person, Yes Time, Yes Place Level of alertness: Alert Behavior: calm, cooperative, talkative Psychomotor activity: Normal Eye Contact: Maintains Eye Contact Mood Description: Euthymic/stable Affect description: congruent with mood, labile Speech Volume: Normal Speech pattern: normal rate, normal rhythm, normal tone, fluent, spontaneous, limited Language & Vocabulary: consistent with education Thought Process: Linear, Goal Oriented Thought Content: No Suicidal ideation, No Homicidal ideation, Yes Preoccupation , Yes Paranoid delusion Perceptual Disturbances: Yes Auditory hallucinations, No Visual hallucinations Attention Span Ability: Capable of Focused Attention Memory Description: Grossly Intact Patient Reliability: Reliable Historian Fund of knowledge: Yes abstraction ability, Yes aware of current events Intelligence Estimate: Average Judgment: Limited Insight: Partial
[2017-09-16] MEDS: traZODone 50 MG TABLET PO PRN (21:18)
[2017-09-16] MEDS: hydrOXYzine pamoate 25 MG CAPSULE PO PRN (21:18)
[2017-09-17] MEDS: risperiDONE 1 MG TABLET PO SCH (09:05)
[2017-09-17 10:08] VITALS: BP 117/75
--- NOTE | 2017-09-17 10:10 | Discharge Summary ---
Date of Encounter: 09/17/17 Time of Encounter: 10:05 Diagnosis - Discharge Diagnosis (1) Schizophrenia Status: Acute Qualifiers: Schizophrenia type: paranoid schizophrenia Qualified Code(s): F20.0 - Paranoid schizophrenia Medications - Discharge Medications Prescriptions: Citalopram [CeleXA] 20 mg PO DAILY #30 tablet risperiDONE [RisperDAL] 1 mg PO DAILY #30 tablet Citalopram [CeleXA] 20 mg PO DAILY #30 tablet 09/17/17 [Rx] risperiDONE [RisperDAL] 1 mg PO DAILY #30 tablet 09/17/17 [Rx] 3 Allergy/AdvReac Type Severity Reaction Status Date / Time No Known Allergies Allergy Verified 09/09/17 12:00 Results Procedures and tests throughout hospitalization: Completed Lab Orders Category Date Time Status Hgb A1C Routine Lab 09/13/17 08:18 Completed Provider Date of admission: 09/09/17 01:05 Primary care physician: PCP NONE Discharging clinician: Alonso Hastings Psychiatry Exam - Constitutional Vitals: Temp Pulse Resp BP Pulse Ox 98.6 F 83 16 120/69 98 09/16/17 21:00 09/16/17 21:00 09/16/17 21:00 09/16/17 21:00 09/08/17 22:05 General appearance: age & developmentally appropriate, well-groomed, well- nourished - Musculoskeletal Gait: normal Station: relaxed Strength & Tone: normal for patient - Psychiatric Patient Orientation: Yes Person, Yes Time, Yes Place Level of alertness: Alert Behavior: calm, cooperative Psychomotor activity: Normal Eye Contact: Maintains Eye Contact Mood Description: Euthymic/stable Affect description: congruent with mood, full range Speech Volume: Normal Speech pattern: normal rate, normal rhythm, normal tone, fluent, spontaneous Language & Vocabulary: consistent with education Thought Process: Linear, Goal Oriented Thought Content: No Suicidal ideation, No Homicidal ideation, No Overt delusions Perceptual Disturbances: No Auditory hallucinations, No Visual hallucinations Attention Span Ability: Capable of Focused Attention Memory Description: Grossly Intact Patient Reliability: Reliable Historian Fund of knowledge: Yes abstraction ability, Yes aware of current events Intelligence Estimate: Average Judgment: Limited Insight: Partial Hospital Course Hospital course: Mr. Wright is a 32 year old male admitted for exacerbation of schizophrenia and suicidal ideation in addition to substance abuse including amphetamines. For details of the admission please see H&P. On the unit patient was started on Risperdal and Celexa in addition to when necessary medication. Patient responded well to medication he reported improved sleep no auditory or visual hallucinations and denies suicidal ideation. He was encouraged to attend activities and groups. He denied any side effects of medication. His discharge plans were completed by social services analyst to be placed in substance abuse rehabilitation program and he is agreeable to the plan. On discharge patient is medically stable on medication nonsuicidal nonpsychotic and he is discharged in stable condition. - Time Spent with Patient Total time spent providing and/or coordinating discharge services: Assessment and Plan - Patient/Caregiver Discharge Instructions Activity: resume usual activities as tolerated Diet: regular diet - Follow up Plan Follow up with: [facility] [Outside] (You are going into residential substance abuse treatment at [facility] on discharge from the hospital. While there, clinic staff will open a case for you to become a client, and you will be seen daily by the clinic counselors and rifle case repairer, both individually and in group. Your mental health treatment needs will be addressed concurrently. You will also be scheduled to see the psychiatric provider for outpatient psychiatric assessment, evaluation of need for medication assisted treatment, and medication management. ) Functional capacity at discharge: independent ambulation Overall status at discharge: Stable Disposition: Home, Self-Care Quality - Multiple Antipsychotics Patient discharged on 2 or more antipsychotic medications: No Procedures - Procedures Procedures: Medication Management, Crisis Stabilization, Supportive Therapy, Group Therapy, Psychoeducational Therapy
== END 2017-09-17 13:25 | disposition home or self-care (01) | DRG 750 ==
LOC: EMEROO 22:04 → 1ANU 09-09 01:05 → SUATTDRO 09-09 01:05 → 1ANU 09-09 01:22
PROVIDERS: ADMIT Psychiatry & Neurology Forensic Psychiatry; ATTEND Psychiatry & Neurology Psychiatry

== ENCOUNTER 2018-05-25 15:25 | Inpatient (IN) ==
--- NOTE | 2018-05-25 15:45 | Emergency Department Note ---
Disposition Clinical Impression: Suicidal ideation Disposition: Admitted As Inpatient Condition: Fair Forms: ED Satisfaction Letter Time of Disposition: 18:12 Psych HPI - General Chief Complaint: ED Psychiatric Symptoms Stated Complaint: psych eval,SI Time Seen by Provider: 05/25/18 15:28 Source: patient Nursing Notes Reviewed: Yes Vital Signs Reviewed: Yes - History of Present Illness HPI Narrative: 33-year-old male presents for evaluation of suicidal ideation. This has been progressive over last several weeks. He describes racing thoughts with voices in his head that are telling him to hurt himself. He does have a plan which she describes as walking in front of a sem[place]ruck on [address]. Remotely, he had an opioid prescription pill addiction for which she transition to snorting or smoking methamphetamine. Last methamphetamine use was 2 months ago. Currently on Suboxone one quarter strip per day. He left the apartment where he was someone in her room because he awoke and most of the Suboxone was gone. He is currently homeless. PMH: Depression, schizophrenic bipolar Previously medicated with citalopram and risperidone, unknown dosing. No homicidal ideation. Previously followed up [facility]. Has previously seen Vaishali Storm (spelling?) at [facility]. ROS: Positive: As above Negative: Fever, chills, nausea, vomiting, chest pains, palpitations, dyspnea, diaphoresis, abdominal pain, dysuria, change of bowel habits - Related Data Previous Rx's Medication Instructions Recorded Citalopram [CeleXA] 20 mg PO DAILY #30 tablet 09/17/17 risperiDONE [RisperDAL] 1 mg PO DAILY #30 tablet 09/17/17 Allergies Allergy/AdvReac Type Severity Reaction Status Date / Time No Known Allergies Allergy Verified 11/15/17 18:43 Past Medical History - Past Medical History Medical history: Reports: no medical history Surgical history: Reports: orthopedic, other (ORIF left femur years ago) Psychiatric history: Reports: depression, schizophrenia, previous psychiatric hospitalization - Social History Smoking Status: Current every day smoker Smokeless Tobacco Status: Yes (occassional) Alcohol use: Reports: none Drug use: Reports: marijuana, prescription drug abuse Physical Exam Vital Signs Reviewed General: Patient is alert, oriented, and in mild distress-he is tearful, concerned. Head: atraumatic, normocephalic Eye: normal appearance, PERRL, EOMI, no scleral icterus, no conjunctival injection ENT: mucous membranes moist, normal external ear exam Neck: normal inspection, trachea midline, full ROM Chest: normal inspection, symmetric chest rise Respiratory: Good respiratory effort. Bilateral breath sounds are clear without wheezing, crackles, or rhonchi. Cardiovascular: Regular rate and rhythm. No clicks, rubs, gallops, or murmors. Normal heart sounds. Abdomen: Bowel sounds present normoactive x-4 quadrants. Abdomen is soft, nondistended, and nontender. No guarding or rebound. Musculoskeletal: Spontaneously moving all extremities. Skin: warm, dry, intact. Neuro: Alert and oriented x4. GCS 15. No gait ataxia. Psych: Patient's affect is appropriate for situation. - General Limitations: no limitations General appearance: alert, in no apparent distress Course Course Narrative: Discussed with patient refilling his medications versus medical clearance with possibility of admission to the psychiatric unit. He prefers attempting medical clearance with the possibility of admission to the psychiatric unit. Will perform medical clearance workup. Diet has been ordered. Patient does appear to have some insight given that he is seeking help. He does, however, appear to be struggling with his voices telling him to hurt himself. Patient is also homeless as he walked out of the apartment he was somewhat letting and frustration over his roommates in the unexpected disappearance of most of his Suboxone prescription. Patient has been accepted to for continued evaluation. Vital Signs Temperature 98.3 F 05/25/18 15:27 Pulse Rate 107 05/25/18 15:27 Respiratory Rate 20 05/25/18 15:27 Blood Pressure 136/75 05/25/18 15:27 O2 Sat by Pulse Oximetry 94 05/25/18 15:27 Temperature 98.3 F 05/25/18 15:41 Pulse Rate 107 05/25/18 15:41 Respiratory Rate 20 05/25/18 15:41 Blood Pressure 136/75 05/25/18 15:41 O2 Sat by Pulse Oximetry 94 05/25/18 15:41 Oxygen Delivery Oxygen Delivery Room Air Psych - Lab Data Result diagrams: 05/25/18 15:57 05/25/18 15:57 Lab Results 05/25/18 05/25/18 05/25/18 Range/Units 15:56 15:56 15:57 WBC 10.2 (4.3-11.1) K/mcL RBC 5.38 (4.19-5.50) M/mcL Hgb 15.8 (12.9-16.9) g/dL Hct 46.6 (37.5-50.1) % MCV 86.6 (83.0-100.0) fL MCH 29.4 (28.0-33.3) pg MCHC 33.9 (31.6-35.5) g/dL RDW 13.4 (11.5-14.5) % Plt Count 321 (140-400) K/mcL MPV 8.9 L (9.4-12.4) fL Immature Gran % 0.3 (0-4) % Seg Neutrophils % 67.0 % Lymphocytes % 23.6 % Monocytes % 8.0 % Eosinophils % 0.6 % Basophils % 0.5 % Neutrophils # 6.8 (1.6-8.9) K/mcL Lymphocytes # 2.4 (0.6-4.6) K/mcL Monocytes # 0.8 (0.0-1.3) K/mcL Eosinophils # 0.1 (0.0-0.6) K/mcL Basophils # 0.1 (0.0-0.2) K/mcL Sodium (136-145) mEq/L Potassium (3.5-5.1) mEq/L Chloride (98-107) mEq/L Carbon Dioxide (23-29) mEq/L BUN (6-20) mg/dL Creatinine (0.70-1.30) mg/dL Est GFR ( Amer) (> 60) Est GFR (Non-Af Amer) (> 60) BUN/Creatinine Ratio (6-26) Glucose (70-105) mg/dL Calculated Osmolality (280-300) Calcium (8.6-10.3) mg/dL Urine Color Yellow (Yellow) Urine Clarity Clear (Clear) Urine pH 6.5 (5.0-8.0) pH Units Ur Specific [place] 1.016 (1.010-1.025) Urine Protein Negative (Neg-Trace) mg/dL Urine Glucose (UA) Normal (Normal) mg/dL Urine Ketones Trace H (Negative) mg/dL Urine Blood Negative (Negative) Urine Nitrite Negative (Negative) Urine Bilirubin Negative (Negative) Urine Urobilinogen Normal (Normal) mg/dL Ur Leukocyte Esterase Negative (Negative) Salicylates (15.0-30.0) mg/dL Urine Opiates Screen Negative (Jrvllk=675) ng/mL Acetaminophen (10-20) mcg/mL Ur Barbiturates Screen Negative (Kabcvt=323) ng/mL Ur Phencyclidine Scrn Negative (Cutoff=25) ng/mL Ur Amphetamines Screen Negative (Mwuiqr=8637) ng/mL U Benzodiazepines Scrn Negative (Zbhwxp=846) ng/mL Urine Cocaine Screen Negative (Cutoff= 300) ng/mL U Marijuana (THC) Screen Negative (Cutoff = 50) ng/mL Ur Drug Screen Interp See Below Ethyl Alcohol (Less than 10) mg/dL 05/25/18 Range/Units 15:57 WBC (4.3-11.1) K/mcL RBC (4.19-5.50) M/mcL Hgb (12.9-16.9) g/dL Hct (37.5-50.1) % MCV (83.0-100.0) fL MCH (28.0-33.3) pg MCHC (31.6-35.5) g/dL RDW (11.5-14.5) % Plt Count (140-400) K/mcL MPV (9.4-12.4) fL Immature Gran % (0-4) % Seg Neutrophils % % Lymphocytes % % Monocytes % % Eosinophils % % Basophils % % Neutrophils # (1.6-8.9) K/mcL Lymphocytes # (0.6-4.6) K/mcL Monocytes # (0.0-1.3) K/mcL Eosinophils # (0.0-0.6) K/mcL Basophils # (0.0-0.2) K/mcL Sodium 135 L (136-145) mEq/L Potassium 4.0 (3.5-5.1) mEq/L Chloride 101 (98-107) mEq/L Carbon Dioxide 25 (23-29) mEq/L BUN 10 (6-20) mg/dL Creatinine 0.71 (0.70-1.30) mg/dL Est GFR ( Amer) > 60 (> 60) Est GFR (Non-Af Amer) > 60 (> 60) BUN/Creatinine Ratio 14 (6-26) Glucose 110 H (70-105) mg/dL Calculated Osmolality 280 (280-300) Calcium 9.7 (8.6-10.3) mg/dL Urine Color (Yellow) Urine Clarity (Clear) Urine pH (5.0-8.0) pH Units Ur Specific [place] (1.010-1.025) Urine Protein (Neg-Trace) mg/dL Urine Glucose (UA) (Normal) mg/dL Urine Ketones (Negative) mg/dL Urine Blood (Negative) Urine Nitrite (Negative) Urine Bilirubin (Negative) Urine Urobilinogen (Normal) mg/dL Ur Leukocyte Esterase (Negative) Salicylates < 2.5 L (15.0-30.0) mg/dL Urine Opiates Screen (Bxgnvw=994) ng/mL Acetaminophen < 10 L (10-20) mcg/mL Ur Barbiturates Screen (Weybpj=585) ng/mL Ur Phencyclidine Scrn (Cutoff=25) ng/mL Ur Amphetamines Screen (Rojxtl=7157) ng/mL U Benzodiazepines Scrn (Ibzcku=025) ng/mL Urine Cocaine Screen (Cutoff= 300) ng/mL U Marijuana (THC) Screen (Cutoff = 50) ng/mL Ur Drug Screen Interp Ethyl Alcohol < 10 (Less than 10) mg/dL Psychiatric Medical Clearance - Medical Clearance Checklist Medical History: No Social History Section defined Current Vitals: Last Vital Signs Temp 98.3 F 05/25/18 15:41 Pulse 107 05/25/18 15:41 Resp 20 05/25/18 15:41 BP 136/75 05/25/18 15:41 Pulse Ox 94 05/25/18 15:41 Psychiatric Lab Panel: Drug Levels and Toxicity 05/25/18 05/25/18 15:56 15:57 Urine Opiates Screen Negative Acetaminophen < 10 L Ur Barbiturates Screen Negative Ur Phencyclidine Scrn Negative Ur Amphetamines Screen Negative U Benzodiazepines Scrn Negative Urine Cocaine Screen Negative U Marijuana (THC) Screen Negative Ethyl Alcohol < 10 Abnormal Labs: Abnormal lab results MPV 8.9 fL (9.4-12.4) L 05/25/18 15:57 Sodium 135 mEq/L (136-145) L 05/25/18 15:57 Glucose 110 mg/dL (70-105) H 05/25/18 15:57 Urine Ketones Trace mg/dL (Negative) H 05/25/18 15:56 Salicylates < 2.5 mg/dL (15.0-30.0) L 05/25/18 15:57 Acetaminophen < 10 mcg/mL (10-20) L 05/25/18 15:57 Statement of Medical Clearance: I have evaluated the patient, reviewed diagnostic information, and certify that the patient's medical condition is sufficiently stable that transfer to the psychiatric unit does not pose a significant risk of deterioration.
--- NOTE | 2018-05-25 15:47 | Emergency Department Note ---
Disposition Clinical Impression: Suicidal ideation Disposition: Admitted As Inpatient Condition: Fair Psych HPI - General Chief Complaint: ED Psychiatric Symptoms Stated Complaint: SI Time Seen by Provider: 05/25/18 15:28 Source: patient Mode of arrival: ambulatory Limitations: no limitations Nursing Notes Reviewed: Yes Vital Signs Reviewed: Yes - History of Present Illness HPI Narrative: 33 y/o male with history of schizophrenia, bipolar and depression presents to the ED with SI, racing thought, and auditory hallucinations. Patient states that he is supposed to be taking rispiridone and citalopram but has not taken his medications for two months due to previously receiving a dwi and now being unable to pick them up. Patient states that he has been hearing voices that are telling him to kill himself by walking into traffic. Patient notes that he stopped snorting crytstal meth several months ago and states that he currently is receiving suboxone. He notes that within the past week he moved out of his aparment after he believes his roommates took most of his suboxone and he is now currently homeless. Pt complaint: suicidal ideation, feels depressed, anxiety, medical clearance request If medical clearance, reason: psychiatric condition Onset (ago): week(s) (1) Duration: changing over time History of similar episodes: Yes Improves with: none, medication Worsens with: none Context: not taking psychiatric medications, significant life stressor Alleged intoxication: No Associated Psychiatric Symptoms: depression, suicidal ideation, racing thoughts, auditory hallucinations, anxiety Associated symptoms: Reports: denies other symptoms Traumatic symptoms: denies traumatic injury Treatments prior to arrival: none Self harm or harm to others: admits thoughts of self harm, has plan - Related Data Previous Rx's Medication Instructions Recorded Citalopram [CeleXA] 20 mg PO DAILY #30 tablet 09/17/17 risperiDONE [RisperDAL] 1 mg PO DAILY #30 tablet 09/17/17 Allergies Allergy/AdvReac Type Severity Reaction Status Date / Time No Known Allergies Allergy Verified 11/15/17 18:43 All systems ED: reviewed and negative except as stated. Review of Systems: As Per HPI Constitutional: Reports: as per HPI Eyes: Reports: as per HPI ENT ED: Reports: as per HPI Cardiovascular: Reports: as per HPI Respiratory: Reports: as per HPI Gastrointestinal: Reports: as per HPI Genitourinary: Reports: as per HPI Musculoskeletal: Reports: as per HPI Integumentary: Reports: as per HPI Psychiatric: Reports: anxiety, depression, suicidal thoughts, auditory hallucinations Endocrine: Reports: as per HPI Hematological/Lymphatic: Reports: as per HPI Allergic/Immunologic: Reports: as per HPI Past Medical History - Past Medical History Medical history: Reports: no medical history Surgical history: Reports: orthopedic, other (ORIF left femur years ago) Psychiatric history: Reports: depression, schizophrenia, previous psychiatric hospitalization - Social History Smoking Status: Current every day smoker Smokeless Tobacco Status: Yes (occassional) Alcohol use: Reports: none Drug use: Reports: marijuana, prescription drug abuse Physical Exam - General Limitations: no limitations General appearance: alert, anxious - Head Head exam: atraumatic, normocephalic - Eye Eye exam: Present: normal appearance, EOMI - ENT ENT exam: mucous membranes moist - Neck Neck exam: Present: trachea midline - Chest Chest inspection: Present: symmetric chest wall rise. Absent: tenderness - Respiratory Respiratory exam: Present: normal lung sounds bilaterally. Absent: respiratory distress - Cardiovascular Cardiovascular exam: Present: regular rate, normal heart sounds - Abdominal Exam Abdominal exam: Absent: distention - Extremities Exam Extremities exam: Present: other (no tract hernandez seen) - Neurological Exam Neurological exam: Present: alert, oriented X3 - Psychiatric Psychiatric exam: Present: anxious, suicidal ideation, other (tearful) - Skin Skin exam: Present: warm, dry, intact Course Vital Signs Temperature 98.3 F 05/25/18 15:27 Pulse Rate 107 05/25/18 15:27 Respiratory Rate 20 05/25/18 15:27 Blood Pressure 136/75 05/25/18 15:27 O2 Sat by Pulse Oximetry 94 05/25/18 15:27 Temperature 98.3 F 05/25/18 18:57 Pulse Rate 95 05/25/18 18:57 Respiratory Rate 16 05/25/18 18:57 Blood Pressure 125/76 05/25/18 18:57 O2 Sat by Pulse Oximetry 94 05/25/18 15:41 Oxygen Delivery Oxygen Delivery Room Air Psych - Lab Data Result diagrams: 05/25/18 15:57 05/25/18 15:57 Lab Results 05/25/18 05/25/18 05/25/18 Range/Units 15:56 15:56 15:57 WBC 10.2 (4.3-11.1) K/mcL RBC 5.38 (4.19-5.50) M/mcL Hgb 15.8 (12.9-16.9) g/dL Hct 46.6 (37.5-50.1) % MCV 86.6 (83.0-100.0) fL MCH 29.4 (28.0-33.3) pg MCHC 33.9 (31.6-35.5) g/dL RDW 13.4 (11.5-14.5) % Plt Count 321 (140-400) K/mcL MPV 8.9 L (9.4-12.4) fL Immature Gran % 0.3 (0-4) % Seg Neutrophils % 67.0 % Lymphocytes % 23.6 % Monocytes % 8.0 % Eosinophils % 0.6 % Basophils % 0.5 % Neutrophils # 6.8 (1.6-8.9) K/mcL Lymphocytes # 2.4 (0.6-4.6) K/mcL Monocytes # 0.8 (0.0-1.3) K/mcL Eosinophils # 0.1 (0.0-0.6) K/mcL Basophils # 0.1 (0.0-0.2) K/mcL Sodium (136-145) mEq/L Potassium (3.5-5.1) mEq/L Chloride (98-107) mEq/L Carbon Dioxide (23-29) mEq/L BUN (6-20) mg/dL Creatinine (0.70-1.30) mg/dL Est GFR ( Amer) (> 60) Est GFR (Non-Af Amer) (> 60) BUN/Creatinine Ratio (6-26) Glucose (70-105) mg/dL Calculated Osmolality (280-300) Calcium (8.6-10.3) mg/dL Urine Color Yellow (Yellow) Urine Clarity Clear (Clear) Urine pH 6.5 (5.0-8.0) pH Units Ur Specific [facility] 1.016 (1.010-1.025) Urine Protein Negative (Neg-Trace) mg/dL Urine Glucose (UA) Normal (Normal) mg/dL Urine Ketones Trace H (Negative) mg/dL Urine Blood Negative (Negative) Urine Nitrite Negative (Negative) Urine Bilirubin Negative (Negative) Urine Urobilinogen Normal (Normal) mg/dL Ur Leukocyte Esterase Negative (Negative) Salicylates (15.0-30.0) mg/dL Urine Opiates Screen Negative (Cpoeye=593) ng/mL Acetaminophen (10-20) mcg/mL Ur Barbiturates Screen Negative (Erzhpz=661) ng/mL Ur Phencyclidine Scrn Negative (Cutoff=25) ng/mL Ur Amphetamines Screen Negative (Jqdsff=7897) ng/mL U Benzodiazepines Scrn Negative (Ozpdum=590) ng/mL Urine Cocaine Screen Negative (Cutoff= 300) ng/mL U Marijuana (THC) Screen Negative (Cutoff = 50) ng/mL Ur Drug Screen Interp See Below Ethyl Alcohol (Less than 10) mg/dL 05/25/18 Range/Units 15:57 WBC (4.3-11.1) K/mcL RBC (4.19-5.50) M/mcL Hgb (12.9-16.9) g/dL Hct (37.5-50.1) % MCV (83.0-100.0) fL MCH (28.0-33.3) pg MCHC (31.6-35.5) g/dL RDW (11.5-14.5) % Plt Count (140-400) K/mcL MPV (9.4-12.4) fL Immature Gran % (0-4) % Seg Neutrophils % % Lymphocytes % % Monocytes % % Eosinophils % % Basophils % % Neutrophils # (1.6-8.9) K/mcL Lymphocytes # (0.6-4.6) K/mcL Monocytes # (0.0-1.3) K/mcL Eosinophils # (0.0-0.6) K/mcL Basophils # (0.0-0.2) K/mcL Sodium 135 L (136-145) mEq/L Potassium 4.0 (3.5-5.1) mEq/L Chloride 101 (98-107) mEq/L Carbon Dioxide 25 (23-29) mEq/L BUN 10 (6-20) mg/dL Creatinine 0.71 (0.70-1.30) mg/dL Est GFR ( Amer) > 60 (> 60) Est GFR (Non-Af Amer) > 60 (> 60) BUN/Creatinine Ratio 14 (6-26) Glucose 110 H (70-105) mg/dL Calculated Osmolality 280 (280-300) Calcium 9.7 (8.6-10.3) mg/dL Urine Color (Yellow) Urine Clarity (Clear) Urine pH (5.0-8.0) pH Units Ur Specific [facility] (1.010-1.025) Urine Protein (Neg-Trace) mg/dL Urine Glucose (UA) (Normal) mg/dL Urine Ketones (Negative) mg/dL Urine Blood (Negative) Urine Nitrite (Negative) Urine Bilirubin (Negative) Urine Urobilinogen (Normal) mg/dL Ur Leukocyte Esterase (Negative) Salicylates < 2.5 L (15.0-30.0) mg/dL Urine Opiates Screen (Fkehxf=707) ng/mL Acetaminophen < 10 L (10-20) mcg/mL Ur Barbiturates Screen (Yoygfd=631) ng/mL Ur Phencyclidine Scrn (Cutoff=25) ng/mL Ur Amphetamines Screen (Shsklv=8680) ng/mL U Benzodiazepines Scrn (Eapovo=769) ng/mL Urine Cocaine Screen (Cutoff= 300) ng/mL U Marijuana (THC) Screen (Cutoff = 50) ng/mL Ur Drug Screen Interp Ethyl Alcohol < 10 (Less than 10) mg/dL Psychiatric Medical Clearance - Medical Clearance Checklist Medical History: No Social History Section defined Current Vitals: Last Vital Signs Temp 98.3 F 05/25/18 18:57 Pulse 95 05/25/18 18:57 Resp 16 05/25/18 18:57 BP 125/76 05/25/18 18:57 Pulse Ox 94 05/25/18 15:41 Psychiatric Lab Panel: Drug Levels and Toxicity 05/25/18 05/25/18 15:56 15:57 Urine Opiates Screen Negative Acetaminophen < 10 L Ur Barbiturates Screen Negative Ur Phencyclidine Scrn Negative Ur Amphetamines Screen Negative U Benzodiazepines Scrn Negative Urine Cocaine Screen Negative U Marijuana (THC) Screen Negative Ethyl Alcohol < 10 Abnormal Labs: Abnormal lab results MPV 8.9 fL (9.4-12.4) L 05/25/18 15:57 Sodium 135 mEq/L (136-145) L 05/25/18 15:57 Glucose 110 mg/dL (70-105) H 05/25/18 15:57 Urine Ketones Trace mg/dL (Negative) H 05/25/18 15:56 Salicylates < 2.5 mg/dL (15.0-30.0) L 05/25/18 15:57 Acetaminophen < 10 mcg/mL (10-20) L 05/25/18 15:57 Statement of Medical Clearance: I have evaluated the patient, reviewed diagnostic information, and certify that the patient's medical condition is sufficiently stable that transfer to the psychiatric unit does not pose a significant risk of deterioration. Attestation Statement - Attestation Attestation: I examined this patient and my medical decision-making was reviewed with the Resident Physician. I agree with the documented findings, disposition and treatment plan as described except to the extent set forth below. Findings consistent with suicidal ideations. Patient request admission to psychiatric pinedo. He is medically cleared at this time.
[2018-05-25 16:11] LABS: Basophils # 0.1 K/mcL (0.0-0.2); Basophils % 0.5 %; Eosinophils # 0.1 K/mcL (0.0-0.6); Eosinophils % 0.6 %; Hematocrit 46.6 % (37.5-50.1); Hemoglobin 15.8 g/dL (12.9-16.9); Immature Granulocytes % 0.3 % (0-4); Lymphocytes # 2.4 K/mcL (0.6-4.6); Lymphocytes % 23.6 %; Mean Corpuscular HGB Conc 33.9 g/dL (31.6-35.5); Mean Corpuscular Hemoglobin 29.4 pg (28.0-33.3); Mean Corpuscular Volume 86.6 fL (83.0-100.0); Mean Platelet Volume 8.9 fL (9.4-12.4); Monocytes # 0.8 K/mcL (0.0-1.3); Neutrophils # 6.8 K/mcL (1.6-8.9); Platelet Count 321 K/mcL (140-400); Red Blood Count 5.38 M/mcL (4.19-5.50); Red Cell Distribution Width 13.4 % (11.5-14.5)
[2018-05-25 16:14] LABS: Bilirubin,Urine Negative (Negative); Blood,Urine Negative (Negative); Clarity,Urine Clear (Clear); Color,Urine Yellow (Yellow); Glucose,Urine (UA) Normal (Normal); Ketones,Urine Trace mg/dL (Negative); Leukocyte Esterase,Urine Negative (Negative); Nitrite,Urine Negative (Negative); PH,Urine 6.5 pH Units (5.0-8.0); Protein,Urine Negative (Neg-Trace); Specific Gravity,Urine 1.016 (1.010-1.025); Urobilinogen,Urine Normal (Normal)
[2018-05-25 16:22] LABS: Amphetamine Screen,Urine Negative ng/mL (Cutoff=1000); Barbiturate Screen,Urine Negative ng/mL (Cutoff=200); Benzodiazepines Screen,Urine Negative ng/mL (Cutoff=200); Cannabinoid Screen,Urine Negative ng/mL (Cutoff = 50); Cocaine Screen,Urine Negative ng/mL (Cutoff= 300); Opiate Screen,Urine Negative ng/mL (Cutoff=300); Phencyclidine Screen,Urine Negative ng/mL (Cutoff=25)
[2018-05-25 16:34] LABS: Acetaminophen < 10 mcg/mL (10-20); BUN/Creatinine Ratio 14 (6-26); Blood Urea Nitrogen 10 mg/dL (6-20); Calcium 9.7 mg/dL (8.6-10.3); Carbon Dioxide 25 mEq/L (23-29); Chloride 101 mEq/L (98-107); Ethanol < 10 mg/dL (Less than 10); Glucose 110 mg/dL (70-105); Osmolality,Calculated 280 (280-300); Salicylate < 2.5 mg/dL (15.0-30.0); Sodium 135 mEq/L (136-145); eGFR For Non-African Americans > 60 (> 60)
[2018-05-25] MEDS ORDERED: MOM Conc 10 ML UD.LIQ PO PRN (18:49)
[2018-05-25] MEDS ORDERED: Haloperidol Lactate 5 MG/ML VIAL IM PRN (18:49)
[2018-05-25] MEDS ORDERED: Mag Hydrox/Al Hydrox/Simeth 30 ML UDC PO PRN (18:49)
[2018-05-25] MEDS ORDERED: *HR* LORazepam 1 MG TABLET PO PRN (18:49)
[2018-05-25] MEDS ORDERED: *HR* LORazepam 2 MG/ML VIAL IM PRN (18:49)
[2018-05-25] MEDS ORDERED: Baclofen 10 MG TABLET PO PRN (18:51)
[2018-05-25] MEDS ORDERED: cloNIDine HCl 0.1 MG TABLET PO PRN (18:52)
[2018-05-25] MEDS ORDERED: Ondansetron ODT 4 MG TAB.RAPDIS SL PRN (18:52)
[2018-05-25] MEDS: Nicotine 14 MG PATCH.TD24 TD SCH (19:50)
[2018-05-25] MEDS: hydrOXYzine pamoate 25 MG CAPSULE PO PRN (20:19)
[2018-05-25] MEDS: Ibuprofen 400 MG TABLET PO PRN (20:19)
[2018-05-25] MEDS: traZODone 50 MG TABLET PO PRN (20:20)
[2018-05-26] MEDS: Nicotine 14 MG PATCH.TD24 TD SCH (09:36)
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
[2018-05-26] MEDS: traZODone 50 MG TABLET PO PRN (21:04)
[2018-05-26] MEDS: hydrOXYzine pamoate 25 MG CAPSULE PO PRN (21:04)
[2018-05-27] MEDS: Nicotine 14 MG PATCH.TD24 TD SCH (09:43)
[2018-05-27] MEDS: Ibuprofen 400 MG TABLET PO PRN ×2 (14:02→20:42)
--- NOTE | 2018-05-27 15:21 | Psychiatry Progress Note ---
Date of Encounter: 05/27/18 Time of Encounter: 15:05 Subjective Interval history: Patient states he is starting to have "some leg cramps, aches and pains. Going through a little withdrawal from the Suboxone". He denies any diarrhea or N/V. He states it is not that bad, that he was not taking very much Suboxone to begin with. He denies being suicidal or homicidal. He tells me he is doing fine with his emotional mental health. No issues with starting the Celexa. Reminds me that he is homeless and he just needs to find a place to live which will help with the stresses of his life; then he will put him back at baseline. His mood is stable, his thoughts are stable. He denies any other issues except for being homeless. Results - Vital Signs Vital Signs: Temp Pulse Resp BP Pulse Ox 98.3 F 61 18 110/70 100 05/27/18 09:00 05/27/18 09:00 05/27/18 09:00 05/27/18 09:00 05/27/18 09:00 Assessment and Plan (1) Depression Current visit: Yes Status: Acute Risks, benefits, side effects, alternatives discussed w/pt: Yes (Restart Celxa, pt has been on previously but not compliant) Patient agreeable to treatment: Yes Qualifiers: Depression Type: other depression Qualified Code(s): F32.89 - Other spec ified depressive episodes (2) Amphetamine abuse, episodic Current visit: No Status: Acute Risks, benefits, side effects, alternatives discussed w/pt: Yes Patient agreeable to treatment: Yes (3) Opioid abuse Current visit: Yes Status: Acute Risks, benefits, side effects, alternatives discussed w/pt: Yes Patient agreeable to treatment: Yes (He takes Suboxone prescribed by [facility]) Consult Discharge Plan - Plan Referrals: NONE,PCP [Primary Care Provider] - Psychiatry Exam - Constitutional Vitals: Temp Pulse Resp BP Pulse Ox 98.3 F 61 18 110/70 100 05/27/18 09:00 05/27/18 09:00 05/27/18 09:00 05/27/18 09:00 05/27/18 09:00 General appearance: age & developmentally appropriate, well-groomed, well- nourished - Musculoskeletal Gait: other (seated thoroughout interview) Station: relaxed Strength & Tone: normal for patient - Psychiatric Patient Orientation: Yes Person, Yes Time, Yes Place, Yes Circumstance Level of alertness: Alert Behavior: calm Psychomotor activity: Normal Eye Contact: Maintains Eye Contact Mood Description: Euthymic/stable Affect description: congruent with mood Speech Volume: Normal Speech pattern: normal rate, normal rhythm, normal tone Language & Vocabulary: consistent with education Thought Process: Intact Attention Span Ability: Capable of Focused Attention Memory Description: Grossly Intact Patient Reliability: Questionable Historian Fund of knowledge: Yes abstraction ability Intelligence Estimate: Average Judgment: Good Insight: Full
[2018-05-27] MEDS: traZODone 50 MG TABLET PO PRN (20:42)
[2018-05-27] MEDS: hydrOXYzine pamoate 25 MG CAPSULE PO PRN (20:42)
[2018-05-28] MEDS: Nicotine 14 MG PATCH.TD24 TD SCH (09:54)
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
[2018-05-28 10:19] VITALS: BP 105/64
== END 2018-05-28 13:50 | disposition home or self-care (01) | DRG 754 ==
LOC: EMEROOARM 15:25 → SUATTDRO 18:37 → 1ANU 18:37
PROVIDERS: ADMIT Psychiatry & Neurology Forensic Psychiatry; ATTEND Psychiatry & Neurology Psychiatry